=== PATIENT | male | born 1950 | race Caucasian/White ===

== ENCOUNTER 2016-11-17 10:40 | Inpatient (IN) | payer OTHER ==
[~2016-11-17] VITALS: Ht 170.2 cm; Wt 150.6 kg
[2016-11-17] MEDS ORDERED: UROCIT-K15 MEQ PO (16:02)
[2016-11-17] MEDS ORDERED: ZOCOR40 M1 PO (16:05)
[2016-11-17] MEDS ORDERED: ZYLOPRIM300 MG PO (16:05)
[2016-11-17] MEDS ORDERED: GLUCOTROL5 MG PO (16:06)
[2016-11-17] MEDS ORDERED: HALFPRIN81 MG PO (16:06)
[2016-11-17] MEDS ORDERED: MOBIC15 MG PO (16:07)
[2016-11-17] MEDS ORDERED: HYDROCHLOROTHIA25 MG PO (16:07)
[2016-11-17] MEDS ORDERED: PRINIVIL20 MG PO (16:07)
[2016-11-17] MEDS ORDERED: VITAMIN B-625 MG PO (16:08)
[2016-11-17] MEDS ORDERED: GLUCOPHAGE1000 MG PO (16:08)
== END 2016-11-18 14:05 | disposition short-term general hospital (02) | DRG 872 ==
LOC: ER 10:40 → IP 16:15
PROVIDERS: ADMIT Family Medicine
DX: A40.9 Streptococcal sepsis, unspecified (principal); N39.0 Urinary tract infection, site not specified; N17.9 Acute kidney failure, unspecified; J98.11 Atelectasis; E11.22 Type 2 diabetes mellitus with diabetic chronic kidney disease; E11.65 Type 2 diabetes mellitus with hyperglycemia; I12.9 Hypertensive chronic kidney disease with stage 1 through stage 4 chronic kidney disease, or unspecified chronic kidney disease; N18.9 Chronic kidney disease, unspecified; R65.20 Severe sepsis without septic shock; E78.5 Hyperlipidemia, unspecified; E66.9 Obesity, unspecified; B95.5 Unspecified streptococcus as the cause of diseases classified elsewhere; I51.7 Cardiomegaly; N20.0 Calculus of kidney
CPT/HCPCS: J1650; J1815; J2543; J3370; Q9963